=== PATIENT | male | born 1955 | race Caucasian/White ===

== ENCOUNTER 2020-07-23 04:53 | Emergency (ER) | payer MEDICARE, OTHER, SELFPAY ==
--- NOTE | ~2020-07-23 | XR_ITS ---
EXAMINATION: XR chest 2V 07/23/2020 05:52 INDICATION: Chest discomfort and shortness of breath. PROCEDURE: PA and lateral views of the chest COMPARISON: 10/29/2013 FINDINGS: The lungs are clear. The cardiomediastinal silhouette is within normal limits. There are no pleural effusions. There is no pneumothorax suspected. IMPRESSION: 1: NO ACUTE CARDIOPULMONARY DISEASE. Reviewed, dictated and finalized at location A.
[2020-07-23 04:57] VITALS: BP 148/86; PULSE 83; RESP 18; TEMP 36.3; O2SAT 99
--- NOTE | 2020-07-23 05:03 | ECG_ITS ---
Measurements Intervals [place] Rate: 71 P: 38 [place]: 159 QRS: -21 QRSD: 106 T: 23 QT: 375 QTc: 407 Interpretive Statements SINUS RHYTHM RSR' IN V1 OR V2, CONSIDER RIGHT VENTRICULAR HYPERTROPHY OR RIGHT VCD BASELINE ARTIFACT- I, III BORDERLINE ECG Electronically Signed On 07-23-2020 7:44:54 CDT by Hakan Holman D.O.
--- NOTE | 2020-07-23 05:13 | ED.CHESTPAIN ---
HPI - Chest Pain General Chief Complaint: Chest Pain <Mauricio Romero MD - Last Filed: 07/23/20 05:19> Stated Complaint: chest pressure <Mauricio Romero MD - Last Filed: 07/23/20 05:19> Time Seen by Provider: 07/23/20 05:10 <Mauricio Romero MD - Last Filed: 07/23/20 05:19> History of Present Illness HPI narrative: Awoke from sleep early this morning feeling like there was a load of bricks on his chest. He did not have any pain, but he felt like he was not able t get a full breath. This was worse when he would lay flat. He was feeling congested prior to going to sleep last night. <Mauricio Romero MD - Last Filed: 07/23/20 05:19> Related Data Home Medications: Home Medications Medication Instructions Recorded Confirmed dupilumab 300 mg/2 mL subcutaneous 300 mg SUB-Q .C6ximak ml 06/03/20 06/03/20 syringe levothyroxine 125 mcg PO DAILY 07/23/20 <Mauricio Romero MD - Last Filed: 07/23/20 05:19> Allergies/Adverse Reactions: Allergies Allergy/AdvReac Type Severity Reaction Status Date / Time bacitracin Allergy Unknown Rash Verified 07/23/20 05:12 latex Allergy Unknown Rash Verified 07/23/20 05:16 SHAMPOOS Allergy Unknown Rash Uncoded 07/23/20 05:12 SOAPS Allergy Unknown Rash Uncoded 07/23/20 05:12 <Mauricio Romero MD - Last Filed: 07/23/20 05:19> Review of Systems Review of Systems: All systems reviewed & are unremarkable except as noted in HPI and below <Mauricio Romero MD - Last Filed: 07/23/20 05:19> Constitutional: Constitutional: Denies chills and Denies fever(s) <Mauricio Romero MD - Last Filed: 07/23/20 05:19> ENT: Denies sore throat <Mauricio Romero MD - Last Filed: 07/23/20 05:19> Cardiovascular: Cardiovascular: Denies chest pain <Mauricio Romero MD - Last Filed: 07/23/20 05:19> Respiratory: Respiratory: Reports chest congestion and Reports dyspnea <Mauricio Romero MD - Last Filed: 07/23/20 05:19> Gastrointestinal: Gastrointestinal: Denies abdominal pain and Denies nausea <Mauricio Romero MD - Last Filed: 07/23/20 05:19> [facility] Past Medical History Medical History: Medical History (Updated 07/23/20 @ 10:23 by Mukund Nieto MD) Hypogonadism in male Hypothyroidism <Mauricio Romero MD - Last Filed: 07/23/20 05:19> Family History Family History: Family History (Updated 06/08/19 @ 07:36 by DOCTOR UNKNOWN) Father Diabetes mellitus Malignant neoplasm of prostate Mother Patient's mother is in good health Sibling Carcinoma of colon <Mauricio Romero MD - Last Filed: 07/23/20 05:19> Social History Social History: Social History Smoking status: Never smoker Alcohol intake: current <Mauricio Romero MD - Last Filed: 07/23/20 05:19> Course Reevaluation(s) Reevaluation #1: Currently patient feeling okay, denying any symptoms. Patient reported having slight sore throat and postnasal discharge prior to go to bed last night, he was thinking about COVID-19. Patient also had a lot of stress lately with trouble sleeping. Patient denies exposure to anybody with known COVID-19, fever, chills, headache, body aches, coughing or chest pain. Woke up this morning with trouble taking a deep breath. He feels like his breath does not go deep enough. Denying any chest pain. The symptom lasted for maximum 15 minutes and then resolved. Patient denies any history of diabetes, hypertension, family history of coronary artery disease, smoking. Patient is physically active, and not obese. Physical exam looks okay, Labs showed normal troponin level x2., EKG with LVH criteria, chest x-ray showed no acute abnormality. Patient will get discharge <Mukund Nieto MD - Last Filed: 07/23/20 10:30> Date: 07/23/20 <Mukund Nieto MD - Last Filed: 07/23/20 10:30> Time: 10:19 <Mukund Nieto MD - Last Filed: 07/23/20 10:30> Vital Signs Vital signs: Vital Signs [place]
[2020-07-23] MEDS: ASPIRIN 81 MG CHEWABLE TABLET 324 MG PO (05:18)
[2020-07-23 05:20] LABS: Basophils Absolute Auto 0.1 K/mm3 (0.0-0.1); Eosinophils Absolute Auto 0.2 K/mm3 (0-0.3); Eosinophils Percent Auto 2.7 % (0-4.4); Hematocrit 41.2 % (42.0-52.0); Hemoglobin 14.4 g/dL (14.0-18.0); Immature Granulocyte Absolute 0.04 K/mm3 (0.00-0.031); Immature Granulocyte Percent A 0.6 % (0-0.5); Lymphocytes Absolute Auto 1.65 K/mm3 (0.9-3.2); Lymphocytes Percent Auto 26.7 % (18.3-44.2); Mean Corpuscular Hemoglobin 31.6 pg (26-34); Mean Corpuscular Volume 90.4 fl (80-100); Mean Platelet Volume 9.2 fl (7.4-10.4); Monocytes Absolute Auto 0.6 K/mm3 (0.1-0.6); Neutrophils Absolute Auto 3.7 K/mm3 (1.3-6.7); Platelet Count Result 205 k/mm3 (150-375); Red Blood Count 4.56 M/mm3 (4.6-6.20); Red Cell Distribution Width 11.4 % (11.5-14.5); White Blood Count 6.2 K/mm3 (4.5-10.0)
[2020-07-23 05:29] LABS: Partial Thromboplastin Time 25.4 SECONDS (22.3-36.8); Prothrombin Time 12.5 Seconds (11.1-14.7)
[2020-07-23 05:33] LABS: Anion Gap 8 mmol/L (8-16); Blood Urea Nitrogen 20 mg/dL (9-20); Calcium 9.5 mg/dL (8.4-10.2); Carbon Dioxide 28 mmol/L (22-30); Chloride 104 mmol/L (98-107); Estimated Glomerular Filt Rate > 60; Glucose 114 mg/dL (75-110); Potassium 4.3 mmol/L (3.4-5.0); Sodium 140 mmol/L (137-145)
[2020-07-23 05:46] LABS: NT Pro B Type Natriuretic Pept 28 PG/ML (5-100); Troponin I < 0.012 ng/mL (0.000-0.034)
[2020-07-23 06:00] VITALS: BP 137/87; PULSE 70; RESP 16; O2SAT 96
[2020-07-23 07:08] VITALS: BP 135/79; PULSE 73; RESP 20; O2SAT 95
[2020-07-23 08:20] VITALS: BP 150/85; PULSE 68; RESP 21; O2SAT 96
[2020-07-23 08:29] LABS: Troponin I 0.014 ng/mL (0.000-0.034)
--- NOTE | 2020-07-23 10:10 | ECG_ITS ---
Measurements Intervals [place] Rate: 67 P: 34 [place]: 158 QRS: -21 QRSD: 101 T: 16 QT: 384 QTc: 406 Interpretive Statements SINUS RHYTHM RSR' IN V1 OR V2, CONSIDER RIGHT VENTRICULAR HYPERTROPHY OR RIGHT VCD VOLTAGE CRITERIA FOR LVH BORDERLINE ECG Electronically Signed On 07-23-2020 10:30:06 CDT by Hakan Holman D.O.
[2020-07-23 10:30] VITALS: BP 149/88; PULSE 70; RESP 21; O2SAT 96
== END 2020-07-23 10:39 | disposition home or self-care (01) ==
PROVIDERS: Emergency Medicine; Emergency Provider Emergency Medicine; PCP Internal Medicine
DX: J06.9 Acute upper respiratory infection, unspecified (principal); R06.00 Dyspnea, unspecified; E03.9 Hypothyroidism, unspecified; R94.31 Abnormal electrocardiogram [ECG] [EKG]
CPT/HCPCS: 36415; 71046; 80048; 83880; 84484; 85025; 85610; 85730; 93005; 99284; A9270

== ENCOUNTER → 2020-12-26 03:10 | Outpatient (CLI) | payer MEDICARE, OTHER, SELFPAY ==
[2020-12-28 14:14] LABS: SARS-CoV-2 RNA PCR Negative
== END ==
PROVIDERS: PCP Internal Medicine; Visit Provider Internal Medicine Critical Care Medicine
DX: Z01.812 Encounter for preprocedural laboratory examination (principal); Z20.822 Contact with and (suspected) exposure to COVID-19
CPT/HCPCS: C9803; U0003; U0005

== ENCOUNTER 2020-12-28 09:04 | Outpatient (CLI) | payer MEDICARE, OTHER, SELFPAY ==
--- NOTE | 2021-01-15 12:19 | WPDSLEEPSTUD ---
Sleep Study Ordering Provider: Alize Ramirez NP Interpreting Physician: Dominga West MD Sleep Study Type: Polysomnogram Height: 1.78 m Weight: 92.986 kg Body Mass Index: 29.4 Neck Circumference (inches): 16 Ideal: 3 Reason for Sleep Study Frequent loud snoring that disturbs others Sleep History Edward Ruiz is a 65 year old man who frequently snores loudly enough that it disturbs his . He frequently awakens at night with heartburn, belching or coughing. He rarely has trouble sleeping with a cold. He does not wake up gasping for breath at night. He frequently has breathing problems at night reported to him by others. He rarely sweats excessively at night. He does not notice his heart pounding or beating irregularly at night. He rarely falls asleep during the day. He never falls asleep involuntarily or while driving. He does not have loss of muscle tone with strong emotion. He does not have daytime difficulties due to excessive sleepiness. He does not feel paralyzed on waking or falling asleep. He rarely has vivid dreamlike scenes upon awakening or falling asleep. He does not feel afraid to go to sleep. He rarely has nightmares. He occasionally remembers his dreams. He rarely has racing thoughts. He never feels sad or depressed. Rarely he has anxiety. He rarely has muscular tension. He does not notice parts of his body jerking. He rarely kicks at night. He rarely has crawling and aching feelings in his legs and rarely has any kind of leg pain at night. He does not have morning jaw pain. He occasionally grind his teeth during sleep. He occasionally has bothered by pain during the day. He rarely is awakened by pain at night really wakes up feeling stiff in the morning with sore achy muscles and never wakes up with pain in the neck and spine. He has mild fatigue, mild memory problems and frequent heartburn at night. Normal bedtime is 10:00 p.m. falling asleep in 5 minutes waking 2-3 times at night. He does not indicate why he awakens at night. He returns to sleep within several minutes. His weekend schedule is the same. He wakes up 5:45 a.m.. He estimates getting 7-8 hours of sleep at night. He seldom takes a nap. He feels better in the morning and afternoon compared to the evening. Most of the time he feels refreshed in the morning. Habits: Caffeine: 1 mocha in the morning. Alcohol: 1 beer in the evening. [facility] Past Medical History Medical History Hyperlipidemia Hypogonadism in male Hypothyroidism Family History Family History Father Diabetes mellitus Malignant neoplasm of prostate Mother Patient's mother is in good health Sibling Carcinoma of colon Social History Social History (Updated 12/20/20 @ 15:12 by Kim Tejeda CMA) Smoking status: Never smoker Alcohol intake: current Substance use: never Medications Home Medications Medication Instructions Recorded Confirmed Type dupilumab 300 mg/2 mL subcutaneous 300 mg SUB-Q .X4kjegi ml 06/03/20 12/20/20 History syringe levothyroxine 125 mcg tablet 125 mcg PO DAILY #90 tablet 08/01/20 12/20/20 Rx Sleep Procedure This test was performed using the [employer] multiple channel system including EOG, EEG, submental EMG, EKG, nasal and oral airflow using thermistors and nasal pressure sensors, chest and abdominal belts for body position data, and pulse oximetry. Video monitoring was also performed. The study was scored using CMS guidelines. This was planned as a split night, however he did not meet criteria to start CPAP, so it was performed as a basic. The patient needed to wake up at 5:20 a.m. to go to work. Sleep Architecture The recording time is 441.3 minutes. The sleep time is 326.5 minutes. Sleep efficiency is 74%. Sleep latency is 20.8 minutes. REM latency is prolonged 142 minutes. There were 43
[2021-01-15 14:01] VITALS: BMI 29.4
== END 2020-12-28 09:05 | disposition home or self-care (01) ==
LOC: ANHCSM 09:05
PROVIDERS: PCP Internal Medicine; Visit Provider Nurse Practitioner
DX: G47.10 Hypersomnia, unspecified (principal); R06.83 Snoring; G47.39 Other sleep apnea
CPT/HCPCS: 95810

== ENCOUNTER 2020-12-30 08:14 | Outpatient (RCR) | payer MEDICARE, OTHER, SELFPAY ==
--- NOTE | 2020-12-30 08:57 | PTOPEVAL ---
PHYSICAL THERAPY EVALUATION AND PLAN OF CARE 12-30-20 Thank you for referring Edward Ruiz to [facility], for the diagnosis of BPPV/vestibular rehab.? Zeyad has improved and does not have any vestibular symptoms today. His plan of care is set for 0-2 x/week for 4 weeks. He is to call if he has any additional questions or if symptoms return and therapy treatment is needed. Please review, sign, date and return this plan of care JT. I agree with and certify that the following plan of care is medically necessary. Referring Physician Date Attending Provider: Tristen Washington MD PT Outpatient Evaluation S Document 12/30/20 08:20 CODI (Rec: 12/30/20 08:57 CODI [id number]) Outpatient Past Medical History Past Medical History Source of Past Medical History Patient Neurological History Hx Neurological Disorders No Significant History Cardiovascular History Hx Cardiac Catheterization Yes: to assess SOB- negative Hx Hypercholesterolemia Yes: meds Respiratory History Hx Respiratory Disorders No Significant History Gastrointestinal History Hx Gastroesophageal Reflux Disease Yes Musculoskeletal History Hx Musculoskeletal Disorders No Significant History Endocrine History Hx Hypothyroidism Yes: meds HEENT History Hx HEENT Disorders No Significant History Evaluation Information Problem Diagnosis dizziness/ BPPV Onset December 17, 2020 Prior Level of Function Activity Level (Last 3 Months) 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 Home Meds Must Be Re-entered With Each Visit. Comments Additional Prior Level of Function active lifestyle, doing all Comments home and work tasks, without any issues or dizziness; Pain Assessment Timing of Pain Assessment Timing of Pain Assessment Assessment Self Report Self Report Pain Level 0 Pain Score Pain Score 0: Self Report Cervical and Lumbar ROM Cervical ROM Reason Not Measured WNL/Left,WNL/Right Gait Assessment Gait Assessment Ambulation Assistive Devices None Ambulation Distance 150 Query Text:(Feet) Ambulation Ability
--- NOTE | 2021-02-06 13:54 | PCPTNOTE ---
PHYSICAL THERAPY DISCHARGE 02-06-21 Attending Provider: Tristen Washington MD Patient:Edward Ruiz Date of :1955 Zeyad has not returned for any further treatments since the evaluation on 12/30/2020, for the diagnosis of BPPV; therefore he will be discharged at this time. Thank you for referring Mr. Ruiz to [facility]. Please review, sign, date and return this discharge summary JT. I have been updated about the patient's current status and I agree with discharge from the above service at this time. Referring Physician Date
== END 2021-02-07 09:01 | disposition home or self-care (01) ==
LOC: ANHPT 08:14
PROVIDERS: PCP Internal Medicine; Visit Provider Otolaryngology
DX: H81.13 Benign paroxysmal vertigo, bilateral (principal)
CPT/HCPCS: 97161

== ENCOUNTER 2021-04-05 19:05 | Emergency (ER) | payer MEDICARE, OTHER, SELFPAY ==
--- NOTE | ~2021-04-05 | XR_ITS ---
EXAMINATION: XR chest 1V portable DATE: 04/05/2021 21:32 INDICATION: Slurred speech. TECHNIQUE: A single frontal view of the chest was obtained. COMPARISON: Chest 2 views 07/23/2020 FINDINGS: There is mild scarring at the lung apices. No pleural effusion or pneumothorax. The heart s ize is normal. IMPRESSION: 1. Stable mild scarring at the lung apices. Reviewed, dictated and finalized at location A.
--- NOTE | ~2021-04-05 | CT_ITS ---
EXAMINATION: CTA brain carotid DATE: 04/05/2021 22:29 INDICATION: Slurred speech. TECHNIQUE: Computed tomographic angiography (CTA) of the head was performed without and with 100 mL O mnipaque-350 intravenous contrast. CTA of the neck was performed with intravenous contrast. Automated exposure control and iterative reconstruction technique were employed. The dose-length product was 1 627.07 mGy-cm. Maximum intensity projection and volume rendered 3D-reconstructions were created by eleni aguayo technologist on a separate workstation. COMPARISON: None. FINDINGS: HEAD CTA: There is no intracranial hemorrhage, acute infarction, or abnormal intracranial mass lesion . The ventricles are normal in size. There is mild mucosal thickening in the ethmoid sinuses. There a re likely changes of ocular lens replacement surgeries. The mastoid air cells are normal. The vertebr al arteries are codominant. There is no significant stenosis of basilar artery or the posterior cereb ral arteries. There is no significant stenosis of the intracranial internal carotid arteries or anter ior or middle cerebral arteries. Anterior communicating artery is normal. Posterior communicating art eries are not identified. There is no aneurysm. NECK CTA: There are no pathologically enlarged lymph nodes. There is no significant stenosis of the v ertebral arteries. There is plaque in the proximal internal carotid arteries. There is 0% stenosis of the proximal right internal carotid artery relative to normal distal artery lumen diameter (NASCET c riteria). There is 0% stenosis of the proximal left internal carotid artery relative to normal distal artery lumen diameter. There is moderate cervical spondylosis. IMPRESSION: 1. Normal brain. No aneurysm or significant intracranial arterial stenosis. 2. 0% stenosis of the proximal internal carotid arteries relative to normal distal artery lumen diame ters (NASCET criteria). Reviewed, dictated and finalized at location A. IMPRESSION: 1. Normal brain. No aneurysm or significant intracranial arterial stenosis. 2. 0% stenosis of the proximal internal carotid arteries relative to normal dis radha artery lumen diameters (NASCET criteria).
[2021-04-05 19:47] VITALS: BP 156/91; PULSE 82; RESP 18; TEMP 36.7; O2SAT 98
--- NOTE | 2021-04-05 19:51 | ECG_ITS ---
Measurements Intervals [employer] Rate: 71 P: 34 [place]: 158 QRS: -19 QRSD: 96 T: 7 QT: 366 QTc: 399 Interpretive Statements SINUS RHYTHM EARLY PRECORDIAL R/S TRANSITION VOLTAGE CRITERIA FOR LVH BORDERLINE ECG Electronically Signed On 04-05-2021 21:41:25 CDT by Hakan Holman D.O.
[2021-04-05 20:11] LABS: Basophils Percent Auto 0.6 % (0.2-1.2); Eosinophils Absolute Auto 0.1 K/mm3 (0-0.3); Eosinophils Percent Auto 1.8 % (0-4.4); Hematocrit 42.9 % (42.0-52.0); Hemoglobin 14.5 g/dL (14.0-18.0); Immature Granulocyte Absolute 0.02 K/mm3 (0.00-0.031); Immature Granulocyte Percent A 0.4 % (0-0.5); Lymphocytes Absolute Auto 1.36 K/mm3 (0.9-3.2); Mean Corpuscular HGB Conc 33.8 g/dl (32-36); Mean Corpuscular Hemoglobin 30.9 pg (26-34); Mean Corpuscular Volume 91.3 fl (80-100); Mean Platelet Volume 9.2 fl (7.4-10.4); Monocytes Absolute Auto 0.6 K/mm3 (0.1-0.6); Monocytes Percent Auto 10.3 % (2.6-8.5); Neutrophils Absolute Auto 3.4 K/mm3 (1.3-6.7); Neutrophils Percent Auto 61.9 % (45.5-73.1); Platelet Count Result 208 k/mm3 (150-375); Red Cell Distribution Width 11.7 % (11.5-14.5); White Blood Count 5.4 K/mm3 (4.5-10.0)
[2021-04-05 20:20] LABS: Anion Gap 9 mmol/L (8-16); Blood Urea Nitrogen 21 mg/dL (9-20); Calcium 9.6 mg/dL (8.4-10.2); Carbon Dioxide 23 mmol/L (22-30); Chloride 112 mmol/L (98-107); Estimated CRCL calculation 67 ml/min; Estimated Glomerular Filt Rate > 60; Glucose 99 mg/dL (75-110); INR 0.9; Prothrombin Time 12.6 Seconds (11.1-14.7); Sodium 144 mmol/L (137-145)
[2021-04-05 20:21] LABS: Partial Thromboplastin Time 24.9 SECONDS (22.3-36.8)
[2021-04-05 20:32] LABS: Troponin I < 0.012 ng/mL (0.000-0.034)
[2021-04-05 21:17] VITALS: BP 155/85; PULSE 68; RESP 18; O2SAT 95
[2021-04-05 21:33] VITALS: BP 155/85; PULSE 66; RESP 17; O2SAT 97
[2021-04-05 21:46] VITALS: BP 156/97; PULSE 70; RESP 21; O2SAT 95
--- NOTE | 2021-04-05 21:48 | ED.NEUROSD ---
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 Patient states that late on the afternoon around 6 PM slurred speech, single episode and also only lasted for a few seconds . Patient denies any visual disturbance, focal weakness or numbness, unsteady gait, headache or dizziness. Patient denies any chest pain, shortness of breath, abdominal pain, nausea, vomiting, fever or chills. Patient currently has no complaints. Related Data Home Medications Medication Instructions Recorded Confirmed dupilumab 300 mg/2 mL subcutaneous 300 mg SUB-Q .E9flvga ml 06/03/20 12/20/20 syringe Allergies Allergy/AdvReac Type Severity Reaction Status Date / Time bacitracin Allergy Unknown Rash Verified 07/23/20 05:12 latex Allergy Unknown Rash Verified 07/23/20 05:16 mercaptobenzothiazole Allergy Unknown contact Verified 12/20/20 15:09 dermititis gold Au 198 AdvReac Rash Verified 04/05/21 21:21 SHAMPOOS Allergy Unknown Rash Uncoded 07/23/20 05:12 SOAPS Allergy Unknown Rash Uncoded 07/23/20 05:12 Review of Systems Review of Systems: All systems reviewed & are unremarkable except as noted in HPI and below Constitutional: Constitutional: Denies body ache(s), Denies chills, Denies excessive sweating, Denies fatigue, Denies fever(s), Denies headache(s), Denies lethargy, Denies malaise, Denies weakness and Denies weight loss Eyes: Eyes: Denies blurry vision, Denies change in vision and Denies loss of vision ENT: Denies dizziness, Denies ear discharge, Denies headache(s), Denies lip swelling, Denies epistaxis, Denies nasal congestion, Denies neck pain, Denies throat swelling and Denies tongue swelling Cardiovascular: Cardiovascular: Denies chest pain, Denies chest pain at rest, Denies chest pain with activity, Denies diaphoresis, Denies rapid heart rate, Denies edema, Denies irregular heart rhythm, Denies lightheadedness, Denies palpitations, Denies dyspnea and Denies dyspnea on exertion Respiratory: Respiratory: Denies chest congestion, Denies cough, Denies hemoptysis, Denies dyspnea and Denies dyspnea on exertion Gastrointestinal: Gastrointestinal: Denies abdominal pain, Denies melena, Denies hematochezia, Denies diarrhea, Denies nausea, Denies vomiting and Denies hematemesis Musculoskeletal: Musculoskeletal: Denies abnormal gait, Denies deformity, Denies joint swelling, Denies limited range of motion, Denies neck pain and Denies numbness Neurologic: Denies abnormal gait, Denies confusion, Denies dizziness, Denies headache(s), Denies focal weakness, Denies loss of vision, Denies numbness, Denies Other visual disturbances, Denies Sensory deficit (Neuro) and Denies weakness Psychiatric: Psychiatric: Denies confusion, Denies depression, Denies auditory hallucinations, Denies homicidal ideation and Denies suicidal ideation Endocrine: Endocrine: Denies cold intolerance, Denies excessive sweating, Denies fatigue, Denies heat intolerance and Denies palpitations Hematologic/Lymphatic: Hematologic/Lymphatic: Denies easy bleeding and Denies easy bruising Allergic/Immunologic: Allergic/Immunologic: Denies lip swelling, Denies throat swelling and Denies tongue swelling PMFSH Past Medical History Medical History Hyperlipidemia Hypogonadism in male Hypothyroidism Family History Family History Father Diabetes mellitus Malignant neoplasm of prostate Mother Patient's mother is in good health Sibling Carcinoma of colon
[2021-04-05 22:01] VITALS: BP 151/89; PULSE 68; RESP 15; O2SAT 96
[2021-04-05 23:00] VITALS: BP 132/81; PULSE 64; RESP 16; O2SAT 95
--- NOTE | 2021-04-05 23:32 | PC.NURSE ---
Assumed care of pt. at this time. Report from BAMBI Mckeon
[2021-04-06] VITALS: BP 123/97; PULSE 62; RESP 19; O2SAT 95
[2021-04-06] MEDS: ASPIRIN 325 MG ENTERIC TABLET PO (00:39)
[2021-04-06 00:40] VITALS: BP 130/80; PULSE 69; RESP 17; O2SAT 97
== END 2021-04-06 00:40 | disposition home or self-care (01) ==
PROVIDERS: Emergency Medicine; Emergency Provider Emergency Medicine; PCP Internal Medicine
DX: G45.9 Transient cerebral ischemic attack, unspecified (principal); E03.9 Hypothyroidism, unspecified; E78.5 Hyperlipidemia, unspecified
CPT/HCPCS: 36415; 70496; 70498; 71045; 80048; 84484; 85025; 85610; 85730; 93005; 99284; A9270; Q9967

== ENCOUNTER 2021-09-27 02:00 | Day surgery (SDC) | payer MEDICARE, OTHER, SELFPAY ==
[2021-09-15 13:58] VITALS: BMI 34.8
--- NOTE | 2021-09-26 13:05 | PM.HPGS ---
History of Present Illness History of Present Illness Consent: Risks, benefits, and alternatives have been discussed and questions answered. Patient agrees to proceed with procedure. Chief complaint: family hx of colon ca Narrative: Edward Ruiz is a 66 year old male referred for colon cancer screening. He has family history of polyps in his mother and father. Also his brother had colon cancer. His last colonoscopy was 6 years ago Review of Systems Review of Systems: All systems reviewed & are unremarkable except as noted in HPI and below PMFSH Past Medical History Medical History Elevated PSA Hyperlipidemia Hypogonadism in male Hypothyroidism TIA (transient ischemic attack) Family History Family History Father Diabetes mellitus Malignant neoplasm of prostate Mother Patient's mother is in good health Sibling Carcinoma of colon Social History Social History Smoking status: Never smoker Alcohol intake: current Drinks per week: 7 Substance use: never Substance use type: does not use Living arrangements: with family Spiritual care concerns: No Meds Home Medications and Allergies Home Medications Medication Instructions Recorded Confirmed Type dupilumab 300 mg/2 mL subcutaneous 300 mg SUB-Q .G1yjgmq ml 06/03/20 09/27/21 History syringe levothyroxine 125 mcg tablet 125 mcg PO DAILY #90 tablet 07/17/21 09/27/21 Rx atorvastatin 20 mg tablet 20 mg PO DAILY #90 tablet 08/09/21 09/27/21 Rx aspirin 81 mg tablet,delayed 81 mg PO DAILY 08/16/21 09/27/21 History release Allergies Allergy/AdvReac Type Severity Reaction Status Date / Time bacitracin Allergy Unknown Rash Verified 09/27/21 11:41 latex Allergy Unknown Rash Verified 09/27/21 11:41 mercaptobenzothiazole Allergy Unknown contact Verified 09/27/21 11:41 dermititis amiodarone Allergy Unknown Verified 09/27/21 11:41 butylscopolamine bromide Allergy unknown Verified 09/27/21 11:41 carbamazepine Allergy unknown Verified 09/27/21 11:41 cocamidopropyl betaine Allergy Unknown Verified 09/27/21 11:41 gold Au 198 AdvReac Rash Verified 09/27/21 11:41 iron AdvReac unknown Verified 09/27/21 11:41 potassium AdvReac unknown Verified 09/27/21 11:41 zinc AdvReac unknown Verified 09/27/21 11:41 SHAMPOOS Allergy Unknown Rash Uncoded 09/27/21 11:41 SOAPS Allergy Unknown Rash Uncoded 09/27/21 11:41 shameka Allergy Rash Uncoded 09/27/21 11:41 Exam Const: General: alert Orientation/consciousness: patient oriented x3 Resp: Auscultation: clear to auscultation bilaterally Cardio: Rhythm: regular rhythm GI: GI Palp: Yes Soft to palpation and No Tenderness to palpation present (GI) Neuro: General: patient oriented x3 Assessment and Plan Assessment and plan (1) Screening for colon cancer: Code(s): Z12.11 - Encounter for screening for malignant neoplasm of colon Status: Acute Assessment and Plan: Colonoscopy with possible biopsy or polypectomy or cautery or injection of substances.
[2021-09-27 11:42] VITALS: BP 145/77; PULSE 89; RESP 20; TEMP 36.1; O2SAT 98
[2021-09-27] MEDS: LACTATED RINGERS 1,000 ML 150 ML IV CONT (11:44)
--- NOTE | 2021-09-27 12:06 | WPDANESEPPF ---
Anes - Initial Pre Proc Eval Procedure: Operation Date: 09/27/21 13:00 Proposed Procedures p Screening Colonoscopy - Thomas Batista MD Date/Time: 09/27/21 12:06 Surgeon: Thomas Batista MD Pre Op Diagnosis: family hx of colon ca Patient Data Age: 66 Gender: M Height: 1.65 m Weight: 90.8 kg Last Vital Signs Temp 36.1 C L 09/27/21 11:42 Pulse 89 09/27/21 11:42 Resp 20 09/27/21 11:42 BP 145/77 H 09/27/21 11:42 Pulse Ox 98 09/27/21 11:42 Allergies Allergy/AdvReac Type Severity Reaction Status Date / Time bacitracin Allergy Unknown Rash Verified 09/27/21 11:41 latex Allergy Unknown Rash Verified 09/27/21 11:41 mercaptobenzothiazole Allergy Unknown contact Verified 09/27/21 11:41 dermititis amiodarone Allergy Unknown Verified 09/27/21 11:41 butylscopolamine bromide Allergy unknown Verified 09/27/21 11:41 carbamazepine Allergy unknown Verified 09/27/21 11:41 cocamidopropyl betaine Allergy Unknown Verified 09/27/21 11:41 gold Au 198 AdvReac Rash Verified 09/27/21 11:41 iron AdvReac unknown Verified 09/27/21 11:41 potassium AdvReac unknown Verified 09/27/21 11:41 zinc AdvReac unknown Verified 09/27/21 11:41 SHAMPOOS Allergy Unknown Rash Uncoded 09/27/21 11:41 SOAPS Allergy Unknown Rash Uncoded 09/27/21 11:41 shameka Allergy Rash Uncoded 09/27/21 11:41 Home Medications Medication Instructions Recorded Confirmed Type dupilumab 300 mg/2 mL subcutaneous 300 mg SUB-Q .U3ndrnr ml 06/03/20 09/27/21 History syringe levothyroxine 125 mcg tablet 125 mcg PO DAILY #90 tablet 07/17/21 09/27/21 Rx atorvastatin 20 mg tablet 20 mg PO DAILY #90 tablet 08/09/21 09/27/21 Rx aspirin 81 mg tablet,delayed 81 mg PO DAILY 08/16/21 09/27/21 History release Patient hx anesthesia problems: none Family hx anesthesia problems: none Results Review: All pre-operative results and documents have been reviewed as part of the pre-operative evaluation. [facility] Past Medical History Medical History Elevated PSA Hyperlipidemia Hypogonadism in male Hypothyroidism TIA (transient ischemic attack) Surgical History Surgical History (Updated 09/27/21 @ 12:09 by Ferdinand Hyman MD) H/O arthroscopic knee surgery H/O colonoscopy Family History Family History Father Diabetes mellitus Malignant neoplasm of prostate Mother Patient's mother is in good health Sibling Carcinoma of colon Social History Social History Smoking status: Never smoker Alcohol intake: current Drinks per week: 7 Substance use: never Substance use type: does not use Living arrangements: with family Spiritual care concerns: No Anes - Eval Final PreProcedure Day of Procedure 09/27/21 12:06 Patient weight: obese Heart: regular rate and rhythm Lungs: clear to auscultation Airway: Mallampati scale class II Neurological: alert and oriented Last oral intake: >/= 8 hours ASA classification: III Emergent: no Anesthetic plan: proceed Anesthesia type and monitoring: general GIVS and standard monitoring Results Review: All pre-operative results and documents have been reviewed as part of the pre-operative evaluation. Informed Consent: The patient's anesthetic plan and its attendant risks and benefits were discussed with the patient/family/POA. Questions were solicited and answers provided to the satisfaction of the patient/family/POA.
[2021-09-27 12:46] VITALS: BP 90/60; PULSE 74; RESP 22; O2SAT 97
[2021-09-27 12:56] VITALS: BP 114/73; PULSE 82; RESP 20; O2SAT 100
[2021-09-27 13:06] VITALS: BP 118/81; PULSE 72; RESP 18; O2SAT 100
== END 2021-09-27 13:13 | disposition home or self-care (01) ==
PROVIDERS: PCP Internal Medicine; Visit Provider Internal Medicine Gastroenterology
PROC: 0DJD8ZZ Inspection of Lower Intestinal Tract, Via Natural or Artificial Opening Endoscopic (ICD-10-PCS; CPT 45378; principal; 2021-09-27 13:00)
DX: Z12.11 Encounter for screening for malignant neoplasm of colon (principal); K63.5 Polyp of colon; Z80.0 Family history of malignant neoplasm of digestive organs; E78.5 Hyperlipidemia, unspecified; E03.9 Hypothyroidism, unspecified; Z86.73 Personal history of transient ischemic attack (TIA), and cerebral infarction without residual deficits; R97.20 Elevated prostate specific antigen [PSA]; E66.9 Obesity, unspecified; Z68.33 Body mass index [BMI] 33.0-33.9, adult
CPT/HCPCS: 45385; J2704; J7120

== ENCOUNTER 2022-03-29 13:30 | Outpatient (RCR) | payer MEDICARE, OTHER, SELFPAY ==
[2022-03-29 13:33] VITALS: BP 112/70; PULSE 80; RESP 20; TEMP 36.9; O2SAT 98
[2022-03-29] MEDS: diphenhydrAMINE HCl CAP 25 MG CAPSULE PO (13:46)
[2022-03-29] MEDS: FAMOTIDINE 20 MG TABLET PO (13:46)
[2022-03-29] MEDS: BEBTELOVIMAB 175 MG/2 ML VIAL IV PUSH (14:05)
[2022-03-29 14:47] VITALS: BP 114/66; PULSE 70; O2SAT 98
== END 2022-03-29 16:00 ==
LOC: AMCINF 13:30
PROVIDERS: Visit Provider Internal Medicine Hematology & Oncology
DX: U07.1 COVID-19 (principal)
CPT/HCPCS: A9270; M0222; Q0222

== ENCOUNTER 2022-05-31 09:38 | Outpatient (CLI) | payer MEDICARE, OTHER, SELFPAY ==
[2022-05-31 20:34] LABS: Vitamin D 25 Hydroxy 57.9 ng/mL
[2022-05-31 21:04] LABS: Hemoglobin A1C 5.7 % (<5.7)
== END 2022-05-31 09:39 | disposition home or self-care (01) ==
LOC: ANHGOSHLAB 09:42
PROVIDERS: PCP Family Medicine; Visit Provider Family Medicine
DX: R73.03 Prediabetes (principal); E55.9 Vitamin D deficiency, unspecified
CPT/HCPCS: 36415; 82306; 83036

== ENCOUNTER 2022-09-14 06:59 | Outpatient (CLI) | payer MEDICARE, OTHER, SELFPAY ==
[2022-09-14 07:41] LABS: Basophils Percent Auto 0.4 % (0.2-1.2); Eosinophils Absolute Auto 0.2 K/mm3 (0-0.3); Eosinophils Percent Auto 2.4 % (0-4.4); Hemoglobin 14.3 g/dL (14.0-18.0); Immature Granulocyte Absolute 0.02 K/mm3 (0.00-0.031); Immature Granulocyte Percent A 0.2 % (0-0.5); Lymphocytes Percent Auto 12.5 % (18.3-44.2); Mean Corpuscular Hemoglobin 31.6 pg (26-34); Mean Corpuscular Volume 92.7 fl (80-100); Mean Platelet Volume 9.2 fl (7.4-10.4); Monocytes Absolute Auto 0.8 K/mm3 (0.1-0.6); Monocytes Percent Auto 9.7 % (2.6-8.5); Neutrophils Percent Auto 74.8 % (45.5-73.1); Platelet Count Result 195 k/mm3 (150-375); Red Blood Count 4.53 M/mm3 (4.6-6.20); Red Cell Distribution Width 11.9 % (11.5-14.5)
[2022-09-14 08:41] LABS: Free T4 Free Thyroxine 1.04 ng/mL (0.78-2.19)
[2022-09-14 09:59] LABS: Alanine Aminotransferase 27 U/L (6-50); Albumin Level 4.2 g/dL (3.5-5.1); Alkaline Phosphatase 84 U/L (38-126); Anion Gap 7 mmol/L (8-16); Aspartate Amino Transferase 26 U/L (17-59); Bilirubin,Total 0.8 mg/dL (0.2-1.3); Blood Urea Nitrogen 23 mg/dL (9-20); Calcium 8.9 mg/dL (8.4-10.2); Carbon Dioxide 26 mmol/L (22-30); Chloride 102 mmol/L (98-107); Cholesterol 185 mg/dL (0-200); Estimated Glomerular Filt Rate > 60; Glucose 113 mg/dL (65-110); HDL Direct 55 mg/dL; Potassium 4.4 mmol/L (3.4-5.0); Sodium 135 mmol/L (137-145); Triglycerides 58 mg/dL (<150)
[2022-09-14 10:10] LABS: LDL Cholesterol Direct 86 mg/dL
== END 2022-09-14 07:00 | disposition home or self-care (01) ==
LOC: ANHLAB 07:03
PROVIDERS: PCP Family Medicine; Visit Provider Family Medicine
DX: R53.83 Other fatigue (principal); E03.9 Hypothyroidism, unspecified; E78.5 Hyperlipidemia, unspecified
CPT/HCPCS: 36415; 80053; 80061; 84439; 84443; 85025

== ENCOUNTER → 2023-06-28 08:03 | Outpatient (CLI) | payer MEDICARE, OTHER, SELFPAY ==
--- NOTE | ~2023-06-28 | XR_ITS ---
EXAMINATION: XR chest 2V DATE: 06/28/2023 08:14 INDICATION: Cough. TECHNIQUE: Frontal and lateral views of the chest were obtained. COMPARISON: Chest view 04/05/2021 FINDINGS: There is mild scarring at the lung apices. No pleural effusion or pneumothorax. The heart s ize is normal. IMPRESSION: 1. Stable mild scarring at the lung apices. Reviewed, dictated and finalized at location A.
== END ==
PROVIDERS: PCP Family Medicine; Visit Provider Nurse Practitioner Family
DX: R05.9 Cough, unspecified (principal)
CPT/HCPCS: 71046

== ENCOUNTER 2023-09-09 07:54 | Outpatient (CLI) | payer MEDICARE, OTHER, SELFPAY ==
[2023-09-09 12:22] LABS: Basophils Absolute Auto 0.1 K/mm3 (0.0-0.1); Basophils Percent Auto 0.9 % (0.2-1.2); Eosinophils Absolute Auto 0.2 K/mm3 (0-0.3); Eosinophils Percent Auto 4.1 % (0-4.4); Hematocrit 43.4 % (42.0-52.0); Hemoglobin 13.9 g/dL (14.0-18.0); Immature Granulocyte Absolute 0.05 K/mm3 (0.00-0.031); Immature Granulocyte Percent A 0.9 % (0-0.5); Lymphocytes Absolute Auto 1.36 K/mm3 (0.9-3.2); Lymphocytes Percent Auto 23.2 % (18.3-44.2); Mean Corpuscular Hemoglobin 30.1 pg (26-34); Mean Corpuscular Volume 93.9 fl (80-100); Mean Platelet Volume 9.6 fl (7.4-10.4); Monocytes Absolute Auto 0.5 K/mm3 (0.1-0.6); Monocytes Percent Auto 7.9 % (2.6-8.5); Neutrophils Absolute Auto 3.7 K/mm3 (1.3-6.7); Platelet Count Result 215 k/mm3 (150-375); Red Blood Count 4.62 M/mm3 (4.6-6.20); Red Cell Distribution Width 11.8 % (11.5-14.5); White Blood Count 5.9 K/mm3 (4.5-10.0)
[2023-09-09 12:33] LABS: Alanine Aminotransferase 22 U/L (6-50); Alkaline Phosphatase 100 U/L (38-126); Anion Gap 7 mmol/L (8-16); Aspartate Amino Transferase 40 U/L (17-59); Bilirubin,Total 0.5 mg/dL (0.2-1.3); Blood Urea Nitrogen 21 mg/dL (9-20); Calcium 9.2 mg/dL (8.4-10.2); Carbon Dioxide 29 mmol/L (22-30); Chloride 101 mmol/L (98-107); Cholesterol 172 mg/dL (0-200); Estimated Glomerular Filt Rate > 60; Glucose 102 mg/dL (65-110); HDL Direct 54 mg/dL; Potassium 4.4 mmol/L (3.4-5.0); Sodium 137 mmol/L (137-145); Triglycerides 84 mg/dL (<150)
[2023-09-09 12:44] LABS: LDL Cholesterol Direct 85 mg/dL
[2023-09-09 13:01] LABS: Prostate Specific Antigen 4.4 ng/mL (< OR = 4.0)
[2023-09-09 13:04] LABS: Hemoglobin A1C 5.6 % (<5.7)
[2023-09-09 13:04] LABS: Free T4 Free Thyroxine 1.24 ng/mL (0.78-2.19); Vitamin D 25 Hydroxy 31.4 ng/mL
== END 2023-09-09 07:55 | disposition home or self-care (01) ==
PROVIDERS: PCP Family Medicine; Visit Provider Family Medicine
DX: E03.9 Hypothyroidism, unspecified (principal); E55.9 Vitamin D deficiency, unspecified; E78.5 Hyperlipidemia, unspecified; R73.03 Prediabetes; R53.83 Other fatigue; R97.20 Elevated prostate specific antigen [PSA]; Z12.5 Encounter for screening for malignant neoplasm of prostate
CPT/HCPCS: 36415; 80053; 80061; 82306; 83036; 84153; 84439; 84443; 85025; G0103

== ENCOUNTER → 2023-09-26 10:04 | Outpatient (CLI) | payer MEDICARE, OTHER, SELFPAY ==
--- NOTE | ~2023-09-26 | XR_ITS ---
Right Shoulder Technique: AP and axillary views were obtained. Clinical History: Pain Findings: No fracture or dislocation is seen. Osseous alignment is anatomic. The glenohumeral and acr omioclavicular joint spaces are preserved. Soft tissues are unremarkable. Impression: Unremarkable right shoulder radiographs. Reviewed, dictated and finalized at [facility]. PURSER Impression: Unremarkable right shoulder radiographs.
== END ==
PROVIDERS: PCP Family Medicine; Visit Provider Family Medicine
DX: M25.511 Pain in right shoulder (principal)
CPT/HCPCS: 73030

== ENCOUNTER 2023-10-11 10:00 | Outpatient (RCR) | payer MEDICARE, OTHER, SELFPAY ==
--- NOTE | 2023-09-10 11:22 | PTOPEVAL1 ---
Assessment and note entered by Lester Eaton, PT Evaluation Information Assessment Status Evaluation Diagnosis Right shoulder pain Onset 08/20/23 Subjective Information Reports that he had a fall a few weeks ago onto shoulder. Took steroids and it helped. No pain past elbow and nothing in the neck. Patient is R handed. He is having trouble sleeping on his right side. Reported Pain Level Pain Score 0: Self Report Assessment PT Clinical Summary Patient presents [facility] signs and symptoms consistent with rotator cuff trauma. Shoulder ROM is good, but lacking significant muscle strength and limited by pain with contraction. Patient will benefit from skilled therapy to address deficits and improve functional strength for ADL and quality of life improvement. Plan of Care Interventions Electrical Stimulation,Hot Pack/Cold Pack,Manual Therapy,Neuro Re-education,Therapeutic Activities, Therapeutic Exercise PT Services Indicated Yes Treatment Frequency and 2x/week for 4 weeks Duration These treatments will address the objective and functional deficits as defined above. The patient will be advanced safely and appropriately in order for the patient to progress towards his/her prior level of function. Additional exercises will be introduced and as well as a comprehensive home exercise program upon discharge, if needed, ?to ensure carryover of functional gains achieved in the clinic. This treatment plan has been reviewed and agreement upon by the patient.
--- NOTE | 2023-09-10 11:23 | OPREHPOC ---
Outpatient Therapy Plan of Care This is a Multidisciplinary Plan of Care that may contain components documented by all disciplines (PT, OT, and ST.) PT Problem 1 PT Problem #1 Knowledge Deficit PT Goal 1 Goal Independent with postural HEP Target Visit 4 PT Problem 2 PT Problem #2 Pain PT Goal 1 Goal Reports no pain with sleeping and no positional change due to pain at night Target Visit 4 PT Problem 3 PT Problem #3 Impaired Strength PT Goal 1 Goal Improve R shoulder External Rotation strength to 4 +/5 with no pain to improve shoulder stability. Target Visit 8 PT Goal 2 Goal Patient will improve R shoulder flexion strength to 4+/5 to improve lifting ability and functional reach. Target Visit 8
--- NOTE | 2023-10-11 10:58 | OPREHPOC ---
Outpatient Therapy Plan of Care This is a Multidisciplinary Plan of Care that may contain components documented by all disciplines (PT, OT, and ST.) PT Problem 1 PT Problem #1 Knowledge Deficit PT Goal 1 Goal Independent with postural HEP Target Visit 4 Progress Met PT Problem 2 PT Problem #2 Pain PT Goal 1 Goal Reports no pain with sleeping and no positional change due to pain at night Target Visit 4 Progress Partially Met Comment Still having some bad days but overall improved PT Problem 3 PT Problem #3 Impaired Strength PT Goal 1 Goal Improve R shoulder External Rotation strength to 4 +/5 with no pain to improve shoulder stability. Target Visit 8 Progress Not Met PT Goal 2 Goal Patient will improve R shoulder flexion strength to 4+/5 to improve lifting ability and functional reach. Target Visit 8 Progress Not Met
--- NOTE | 2023-10-11 10:59 | PTOPDC ---
Assessment and note entered by Lester Eaton, PT Evaluation Information Assessment Status Discharge Diagnosis Right shoulder pain Onset 08/20/23 Subjective Information Reports that he had a fall a few weeks ago onto shoulder. Took steroids and it helped. No pain past elbow and nothing in the neck. Patient is R handed. He is having trouble sleeping on his right side. Reported Pain Level Pain Score 1: Self Report Assessment PT Clinical Summary Patient has seen significant improvement in shoulder ROM and comfort with ADLs and self care. He continues to show significant weakness of the rotator cuff group and overhead activity. 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 At this point given his lack of ROM deficits and continued weakness I am highly suspicious of rotator cuff compromise and believe an MRI would be warranted for further evaluation. Plan of Care PT Services Indicated Yes
== END 2023-10-11 13:22 | disposition home or self-care (01) ==
LOC: ANHGOSHPT 10:00
PROVIDERS: PCP Family Medicine; Visit Provider Nurse Practitioner
DX: M25.511 Pain in right shoulder (principal)
CPT/HCPCS: 97110; 97140; 97161; 97530

== ENCOUNTER 2025-02-21 10:56 | Emergency (ER) | payer MEDICARE, SELFPAY ==
--- NOTE | 2025-02-21 10:58 | ED.SKABFB ---
HPI - Skin/Abscess/Foreign Bdy General Chief complaint: Skin/Abscess/Foreign Body Stated complaint: Skin Irritation on R and L Hands Time Seen by Provider: 02/21/25 10:57 Source: patient Mode of arrival: ambulatory Limitations: no limitations History of Present Illness HPI narrative: Edward is a 69-year-old male patient presenting to the clinic today with complaints of a rash to bilateral hands. He reports his missile facilities repairer stated he had staph on his hands and he has finished Keflex and went away however now it has come back-Keflex on the of this month. He is requesting a refill as he has to get on a plane and travel this afternoon. He denies any fevers, chills, body aches. States the rash barkley/stings. Does not itch. Related Data Home Medications ?Medication ?Instructions ?Recorded ?Confirmed ?Last Taken ?Type dupilumab 300 mg/2 mL subcutaneous 300 mg subcut .[id number] 06/03/20 11/26/24 07/14/20 12:00 History syringe (Dupixent) aspirin 81 mg tablet,delayed 81 mg PO DAILY 08/16/21 11/26/24 Unknown History release (Adult Aspirin Regimen) Allergies Allergy/AdvReac Type Severity Reaction Status Date / Time bacitracin Allergy Unknown Rash Verified 02/21/25 10:59 latex Allergy Unknown Rash Verified 02/21/25 10:59 mercaptobenzothiazole Allergy Unknown contact Verified 02/21/25 10:59 dermititis amiodarone Allergy Unknown Verified 02/21/25 10:59 butylscopolamine bromide Allergy unknown Verified 02/21/25 10:59 carbamazepine Allergy unknown Verified 02/21/25 10:59 cocamidopropyl betaine Allergy Unknown Verified 02/21/25 10:59 gold Au 198 AdvReac Rash Verified 02/21/25 10:59 iron AdvReac unknown Verified 02/21/25 10:59 potassium AdvReac unknown Verified 02/21/25 10:59 zinc AdvReac unknown Verified 02/21/25 10:59 SHAMPOOS Allergy Unknown Rash Uncoded 02/21/25 10:59 SOAPS Allergy Unknown Rash Uncoded 02/21/25 10:59 shameka Allergy Rash Uncoded 02/21/25 10:59 Review of Systems Review of Systems: Pertinent positives per HPI. Patient denies any fever, chills, headache, visual changes, dizziness, cough, shortness of breath, chest pain, palpitations, nausea, vomiting, diarrhea, constipation, abdominal pain, or any urinary issues. [facility] Past Medical History Medical History Persistent cough Bronchitis Infected finger COVID-19 Elevated PSA TIA (transient ischemic attack) Hyperlipidemia Hypogonadism in male Hypothyroidism Surgical History Surgical History H/O colonoscopy H/O arthroscopic knee surgery Family History Family History Father Diabetes mellitus Malignant neoplasm of prostate Mother Patient's mother is in good health Sibling Carcinoma of colon Social History Social History Social History: Caffeine-coffee Smoking status: Never smoker Alcohol intake: current Drinks per week: 7 Alcohol use details: beer/wine Substance use: never Substance use type: does not use Do You Feel Safe in your Home?: Yes Lack of Transportation: No Lack of Food: Never True Current Housing: I Have Housing Concerned About Future Housing: No Difficulty Paying Gas/Electric Bills: No Difficulty Paying for Meds: No Currently Unemployed: No Education: Bachelor's Degree Difficulty w/ Childcare or Family Care: No Living arrangements: with family Spiritual care concerns: No Comments At the time of my signature, I reviewed and agree with the nursing past medical, surgical, social, and family history. There is no relevant family history pertinent to the patient complaint. Exam Narrative: General: Well-developed, well nourished, in no apparent distress Head: Normocephalic, atraumatic. Cardio: Regular rate and rhythm, s1 and s2 normal, no murmur appreciated. Resp: Clear to auscultation bilaterally, no rhonchi, rales, wheezing or rubs. Integumentary: [place], warm, and dry, red burning rash to the bilateral hands in between the fingers. Course Course Emergency Course: Portions of this record may have been created with voice recognition software. Level of Care: Express Care Visit Vital Signs Vital signs: Vital signs reviewed MDM - Skin/Abscess/Foreign Bdy MDM Narrative Medical decision making narrative: At the time of visit patient is resting comfortably on the exam table. Patient appears to be nontoxic. Plan: I suspect patient has a staph skin infection to bilateral hands. Prescription for cephalexin was sent to the pharmacy. Supportive measures were discussed with the patient and they voiced understanding discharge instructions and agrees to treatment plan. Return precautions reviewed Differential Diagnosis Differential diagnosis: Likely abscess of skin or subcutaneous tissue, viral exanthem, dermatophytosis, urticaria, herpes zoster, allergic reaction to drug, cellulitis, eczema, insect bites, impetigo and contact dermatitis Discharge Plan Discharge Clinical Impression: Staph skin infection Patient Disposition: Home Condition: Stable Instructions: Antibiotic Form Additional Instructions: Take cephalexin as prescribed May take Tylenol/Motrin as needed for pain Follow-up with your missile facilities repairer as discussed Patient Language: Luxembourgish Prescriptions: New cephalexin 500 mg capsule 500 mg PO Q8H 7 Days Qty: 21 0RF No Action Dupixent Syringe 300 mg/2 mL syringe 300 mg SUB-Q .I7qtceo aspirin [Adult Aspirin Regimen] 81 mg tablet,delayed release (DR/EC) 81 mg PO DAILY atorvastatin 20 mg tablet See Rx Instructions .ROUTE .COMPLEX Qty: 90 3RF Dose Instruction: TAKE 1 TABLET DAILY Rx Instructions: TAKE 1 TABLET DAILY AT BEDTIME levothyroxine 125 mcg tablet See Rx Instructions .ROUTE .COMPLEX Qty: 90 3RF Dose Instruction: TAKE 1 TABLET DAILY Rx Instructions: TAKE 1 TABLET DAILY. omeprazole 20 mg capsule,delayed release(DR/EC) 20 mg PO DAILY Qty: 90 1RF Follow-up/Referrals: Anjelica Hughes DO [Primary Care Provider] - Time of Disposition: 11:13 Quality NIHSS Nursing Documentation ED NIHSS nursing documentation: reviewed/agree
[2025-02-21 11:12] VITALS: BP 134/82; PULSE 77; RESP 20; TEMP 36.6; O2SAT 97
== END 2025-02-21 11:16 | disposition home or self-care (01) ==
PROVIDERS: Emergency Provider Nurse Practitioner Family; PCP Family Medicine
DX: L08.9 Local infection of the skin and subcutaneous tissue, unspecified (principal); B95.8 Unspecified staphylococcus as the cause of diseases classified elsewhere; E03.9 Hypothyroidism, unspecified; E78.5 Hyperlipidemia, unspecified; Z86.73 Personal history of transient ischemic attack (TIA), and cerebral infarction without residual deficits; Z86.16 Personal history of COVID-19; Z79.82 Long term (current) use of aspirin
CPT/HCPCS: 99213; G0463

== ENCOUNTER 2025-05-06 10:11 | Outpatient (CLI) | payer MEDICARE, OTHER, SELFPAY ==
--- OUTSIDE RECORDS SUMMARY | 2025-05-06 10:18 | XMS_ITS | Encounter Summary ---
Author Organization [facility] Health Address [address] [facility] [facility] [place] [address] Care Team Providers Care Architectural Wood Model Maker Name Role Phone Mike Norwood DO Primary Care Provider [phone] Anjelica Hughes DO Primary Care Provider [phone] Reason for Visit * Reason Onset Date Comments Refill Request 09/26/2023 Encounter Details Date Type Department Care Team (Late st Contact Info) Description 09/26/2023 Telephone [facility] - ENT [address] [place] [phone] Rusyt Savage MD [address] [place] [address] [address] [place] [address] Refill Request Social History Tobacco Use Types Packs/Day Years Used Date Smoking Tobacco: Former Cigarettes Q uit: 10/14/1972 Smokeless Tobacco: Never Alcohol Use Standard Drinks/Week Comments Yes 5.8 (1 standard drink = 0.6 oz p ure alcohol) Sex and Gender Information Value Date Recorded Sex Assigned at Not on file Legal Sex Male 5:19 PM APPEALS ANALYST Gender Identity Not on file Sexual Orientation Not on file documented as of this encounter Miscellaneous Notes * Telephone Encounter - Rusty Savage MD - 01/07/2024 1:41 PM CDT Done. Paper signed yesterday. * Telephone Encounter - Therese Green - 01/03/2024 1:44 PM CDT [facility] is requesting refill for medication Dupixent. Cb# [phone] * Telephone Encounter - Gilda Arellano - 01/02/2024 2:32 PM CDT Routed message to Dr. Savage to send refills for Dupixent to [facility] pharmacy. [facility] - [address] [place] [address] Gilda Arellano * Telephone Encounter - Gilda Arellano - 12/31/2023 7:35 AM CDT Routed message for Dr. Savage to send refills for Dupixent 300mg/2ml syringe to the following pharmacy. [facility] - [address] [place] [address] Gilda Arellano * Telephone Encounter - Kj Segovia - 09/26/2023 11:03 AM CST pt needs to get his medication that was prescribed by Dr. Savage to be sent over to a new location. Pt's pharmacy does not have the specific brand for pt's allergy. Triamcinolone(1%) perrigo brand 3 refills was the order..[address] [place] [phone] [facility] pharmacy is the new address forthe medication ALS ANALYST documented in this encounter Plan of Treatment Upcoming Encounters Date Type Department Care Team (Late st Contact Info) Description 10/04/2025 8:40 AM APPEALS ANALYST Office Visit [facility] - D[facility] [facility] [place] [address] Rusty Savage MD [address] [facility] [address] [place] [address] documented as of this encounter Visit Diagnoses Not on filedocumented in this encounter Care Teams Architectural Wood Model Maker Relationship Specialty Start Date End Date Mike Norwood DO PCP - General 12/08/10 09/28/24 Anjelica Hughes DO [address] [facility] [address] [place] [address] PCP - General Family Medicine 09/29/24 documented as of this encounter
--- OUTSIDE RECORDS SUMMARY | 2025-05-06 10:18 | XMS_ITS | Clinical Summary ---
Author Organization [facility] [address] Address [address] [place] [address] Care Team Providers Care Teacher Education Instructor Name Role Phone Mike Norwood DO Primary Care Provider [phone] Allergies Active Allergy Reactions Criticality Noted Date Comments Carbamazepine Rash Medium 09/28/2019 Chromic Acid Rash Medium 09/28/2019 Iodopropynyl Butylcarbamate Rash Medium 09/28/20 19 Lidocaine Rash Medium 09/28/2019 Mercaptobenzothiazole Rash Medium 09/28/2019 Ufmyhpzy-Gnwwpjxfee-Ltslzaqbb Other (See comments) Low 05/26/2012 Skin reaction Potassium Bichromate Rash Medium 09/28/2019 Stannous Chloride Rash Medium 09/28/2019 Zinc Rash Medium 09/28/2019 Medications dupilumab 300 mg/2 mL syringeIndications: eczema Inject 600 mg under the skin every 14 (fourteen) days Last dose 04/20/21 Active desoximetasone (TOPICORT) 0.25 % cream Apply 1 application topically as needed for irritation Active metroNIDAZOLE (METROCREAM) 0.75 % creamIndications:Ac ne Rosacea Apply 1 application topically as needed Active atorvastatin (LIPITOR) 20 mg tablet Take 20 mg by mouth nightly Active levothyroxine (SYNTHROID) 125 mcg tabletIndications:h ypothyroidism Take 125 mcg by mouth pediatric nephrologist before breakfast Active aspirin 325 mg tabletIndications:C erebral Thromboembolism Prevention Take 325 mg by mouth every morning Active omeprazole (PriLOSEC) 20 mg capsule Take 1 capsule (20 mg total) by mouth daily 11/23/19 23 Active Active Problems Problem Noted Date Diagnosed Date Transient ischemic attack (TIA) 06/06/2021 Other chest pain 06/09/2018 Assessment & Plan (06/09/2018 11:21 AM CDT): Risk factors for CAD includes age, hyperlipidemia. Arrange for exercise nuclear stress test to rule out ischemia. Advised to take aspirin 81 milligram daily. If chest pain persists more than 5-10 minutes, I advised patient to call 911. Other specified hypothyroidism 06/09/2018 Assessment & Plan (06/09/2018 11:22 AM CDT): Continue levothyroxine Mixed hyperlipidemia 06/09/2018 Assessment & Plan (06/09/2018 11:28 AM CDT): Lipid panel shows LDL 95 and HDL 61. Continue Lipitor 10 milligram daily Surgical History Surgery Date Site/Laterality Comments KNEE SURGERY Right COLONOSCOPY CATARACT EXTRACTION, BILATERAL Medical History Medical History Date Comments Eczema Thyroid disease Hyperlipidemia Family History Medical History Relation Name Comments Colon cancer Brother Liver cancer Brother Diabetes Father Hyperlipidemia Father Prostate cancer Father Valvular heart disease Father Skin cancer Sister 2 Skin cancer Sister 3 Anesthesia problems Neg Hx Relation Name Status Comments Brother (Age 61) Father Alive Mother Alive Sister 1 Alive Sister 2 Alive Sister 3 Alive Sister 4 Alive Sister 5 Alive Sister 6 Alive Social History Tobacco Use Types Packs/Day Years Used Date Smoking Tobacco: Former Cigarettes 0.1 0.7 1 972 - 06/09/1972 Smokeless Tobacco: Never Alcohol Use Standard Drinks/Week Comments Yes 2 (1 standard drink = 0.6 oz pur e alcohol) AUDIT-C Answer Date Recorded Q1: How often do you have a drink containing alc ohol? 2-3 times a week 04/26/2021 Q2: How many drinks containi ng alcohol do you have on a typical day when you are drinking? 1 or 2 04/26/2021 Q3: How often do you have si x or more drinks on one occasion? Never 04/26/2021 Personal Safety Answer Date Recorded Getting School Help Needed Not on file 10/01 Sex and Gender Information Value Date Recorded Sex Assigned at Not on file Legal Sex Male 12:50 AM COLLISION ESTIMATOR Gender Identity Not on file Sexual Orientation Not on file Obstetrics History Last Filed Vital Signs Vital Sign Reading Time Taken Comments Blood Pressure 126/80 06/06/2021 11:38 AM CDT Pulse 71 06/06/2021 11:38 AM CDT Temperature 36.2 C (97.2 F) 05/09/2021 9:30 AM CDT Respiratory Rate 15 05/09/2021 10:30 AM CDT Oxygen Saturation 93% 05/09/2021 10:30 AM CDT Inhaled Oxygen Concentration - - Weight 93 kg (205 lb) 11/20/2023 9:26 AM COLLISION ESTIMATOR Height 177.8 cm (5' 10) 11/20/2023 9:26 AM COLLISION ESTIMATOR Body Mass Index 29.41 11/20/2023 9:26 AM COLLISION ESTIMATOR Plan of Treatment Health Maintenance Due Date Last Done Comments Colon Cancer Screening-Colonoscopy 1955 Depression Screening 1955 Hepatitis C Screening 1955 Prostate Cancer Screening-PSA 1953 Hepatitis B Screening 1971 Zoster Vaccine (2 of 3) 01/12/2015 11/17/2014 Abdominal Aortic Aneurysm (AAA) Screen 2018 Well Visit 65+ 2018 Pneumococcal vaccine 65+ (2 of 2 - PPSV23) 10/11/2019 10/11/2018 Fall Risk Assessment 04/26/2022 04/26/2021 Influenza Vaccine (Season Ended) 2025 08/28/20 20, 10/11/2018 DTaP/Tdap/Td Vaccine (3 - Td or Tdap) 08/10/2027, 03/07/2015 Insurance MEDICARE [facility] MEDICARE [employer] MEDICARE [facility] Care Teams Teacher Education Instructor Relationship Specialty Start Date End Date Mike Norwood DO PCP - General 11/09/13
--- OUTSIDE RECORDS SUMMARY | 2025-05-06 10:18 | XMS_ITS | Clinical Summary ---
Author Organization [facility] Address [address] [place] [phone] Care Team Providers Care Machine Bunch Maker Name Role Phone Unavailable Primary Care Provider Unavailabl e Allergies No known active allergies Medications atorvastatin (LIPITOR) 20 mg tablet 05/11/2021 Active Dupixent Syringe 300 mg/2 mL Syringe 04/27/2021 Act carolyn Synthroid 125 mcg tablet 04/18/2021 Active metroNIDAZOLE (METROCREAM) 0.75 % Cream 05/18/2021 Active desoximetasone (TOPICORT) 0.25 % Cream Apply to affected area. 05/15/2021 Active aspirin (VÍCTOR CHEWABLE) 81 mg Tablet, Chewable Take 81 mg by mouth daily. Active Active Problems No known active problems Social History Tobacco Use Types Packs/Day Years Used Date Smoking Tobacco: Never Smokeless Tobacco: Never Alcohol Use Standard Drinks/Week Comments Yes 4 (1 standard drink = 0.6 oz pur e alcohol) Sex and Gender Information Value Date Recorded Sex Assigned at Not on file Legal Sex Male 1:09 PM CDT Gender Identity Not on file Sexual Orientation Not on file Last Filed Vital Signs Vital Sign Reading Time Taken Comments Blood Pressure 143/84 06/07/2021 4:58 PM CDT Pulse 73 06/07/2021 4:58 PM CDT Temperature 36.5 C (97.7 F) 06/07/2021 4:58 PM CDT Respiratory Rate 18 06/07/2021 4:58 PM CDT Oxygen Saturation 98% 06/07/2021 4:58 PM CDT Inhaled Oxygen Concentration - - Weight - - Height - - Body Mass Index - - Plan of Treatment Health Maintenance Due Date Last Done Comments DTAP/TDAP/TD VACCINES (1 - Tdap) 1972 COLORECTAL SCREENING 1998 Colorectal Cancer Screening 1998 FIT-DNA Q 3 years 1998 FIT/FOBT Q 1 year 1998 Flex Sig/CT Colonography Q 5 years 1998 PNEUMOCOCCAL VACCINE 50+ YEARS (1 of 1 - PCV) 08/13/20 03 ZOSTER VACCINE (1 of 2) 2003 INFLUENZA VACCINE (#1) 2025 RSV VACCINE (60+ or ) (1 - 1-dose 75+ series) 2028 Insurance MEDICARE
--- OUTSIDE RECORDS SUMMARY | 2025-05-06 10:18 | XMS_ITS | Encounter Summary ---
Author Organization [facility] Address [address] [place] [address] Care Team Providers Care Oracle Identity Management Consultant Name Role Phone Saul Anjelica Pedro Primary Care Provider +1- [phone] Reason for Visit * Reason Onset Date Comments Nurse Only 02/22/2025 Encounter Details Date Type Department Care Team (Late st Contact Info) Description 02/22/2025 Telephone [facility] - Dermatology [address] [place] [address], [place] [phone] Rusty Savage MD [address] [place] [address] [address] DEPT [place] DERMATOLOGY [place], [place] [id number] Nurse Only Social History Tobacco Use Types Packs/Day Years Used Date Smoking Tobacco: Former Cigarettes Q uit: 10/14/1972 Smokeless Tobacco: Never Alcohol Use Standard Drinks/Week Comments Yes 5.8 (1 standard drink = 0.6 oz p ure alcohol) Sex and Gender Information Value Date Recorded Sex Assigned at Not on file 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 Is wanting to make an apt for Hussein or francisco meyer next week when he arrives from out of town. Please call and advise. Cbn is [phone] documented in this encounter Plan of Treatment Upcoming Encounters Date Type Department Care Team (Late st Contact Info) Description 10/04/2025 8:40 AM DIVISION ORDER ANALYST Office Visit [facility] - Dermatology [address] [place] [address], [place] [address] Rusty Savage MD [address] [place] [address] 3 [place] [address] documented as of this encounter Visit Diagnoses Not on filedocumented in this encounter Care Teams Oracle Identity Management Consultant Relationship Specialty Start Date End Date Anjelica Hughes DO [address] [facility] [address] [place] [phone] PCP - General Family Medicine 09/29/24 documented as of this encounter
--- OUTSIDE RECORDS SUMMARY | 2025-05-06 10:18 | XMS_ITS | Encounter Summary ---
Author Organization [facility] Address [address] [facility] [place] [address] Care Team Providers Care Cuff Matcher Name Role Phone Anjelica Hughes Primary Care Provider +1- [phone] Encounter Details Date Type Department Care Team (Late st Contact Info) Description 02/09/2025 Telephone [facility] - Centralized Scheduling [address] [place] [phone] Rusty Savage MD [address] [facility] 3 DEPT OF DERMATOLOGY [place], [place] [id number] Social History Tobacco Use Types Packs/Day Years Used Date Smoking Tobacco: Former Cigarettes Q uit: 10/14/1972 Smokeless Tobacco: Never Alcohol Use Standard Drinks/Week Comments Yes 5.8 (1 standard drink = 0.6 oz p ure alcohol) Sex and Gender Information Value Date Recorded Sex Assigned at Not on file 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 Hurts. Not itching. 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 I sent in keflex 500 mg tid for 7 days. Patient to follow up with me or PCP if condition does not improve. Rusty Savage MD * Telephone Encounter - Stephany Wu - 02/09/2025 8:37 AM CDT Pt calling to speak with Dr Savage or nurse. Sttd he is having a current breakout and his topical ointment is not helping or providing any relief documented in this encounter Plan of Treatment Upcoming Encounters Date Type Department Care Team (Late st Contact Info) Description 10/04/2025 8:40 AM INDUSTRIAL TRUCK OPERATOR Office Visit [facility] - Dermatology [address] [place] [address], [place] [address] Rusty Savage MD [address] [place] [address] 3 [place] [address] documented as of this encounter Visit Diagnoses Not on filedocumented in this encounter Care Teams Cuff Matcher Relationship Specialty Start Date End Date Anjelica Hughes DO [address] [facility] [address] [place] [address] PCP - General Family Medicine 09/29/24 documented as of this encounter
--- OUTSIDE RECORDS SUMMARY | 2025-05-06 10:18 | XMS_ITS | Encounter Summary ---
Author Organization [facility] Address [address] [facility] [place] [address] Care Team Providers Care Lab Assistant Name Role Phone Mike Norwood DO Primary Care Provider +1 [phone] Anjelica Hughes DO Primary Care Provider +1- [phone] Reason for Visit * Reason Onset Date Comments Medication Issue 11/03/2021 Encounter Details Date Type Department Care Team (Late st Contact Info) Description 11/03/2021 Telephone [facility] [address] [facility], [facility] [place] [place] [phone] Rusty Savage MD [facility] [place] [address] Medication Issue Social History Tobacco Use Types Packs/Day Years Used Date Smoking Tobacco: Former Cigarettes Q uit: 10/14/1972 Smokeless Tobacco: Never Alcohol Use Standard Drinks/Week Comments Yes 5.8 (1 standard drink = 0.6 oz p ure alcohol) Sex and Gender Information Value Date Recorded Sex Assigned at Not on file 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 Would like a call with Dr Savage, Please advise. D ACCOUNT MANAGER * Telephone Encounter - Zain De Los Santos - 11/03/2021 9:21 AM CST Pt called concerning medication DUPIXENT 300 MG/2ML prefilled syringe, says that Dupixent is telling them we need to send out a card to Pt to help with Co-Pay. Please advise D ACCOUNT MANAGER documented in this encounter Plan of Treatment Upcoming Encounters Date Type Department Care Team (Late st Contact Info) Description 10/04/2025 8:40 AM FIELD ACCOUNT MANAGER Office Visit [facility] - Dermatology [address] [place] [address], [place] [address] Rusty Savage MD [address] [place] [address] [address] [place] [address] documented as of this encounter Visit Diagnoses Not on filedocumented in this encounter Care Teams Lab Assistant Relationship Specialty Start Date End Date Mike Norwood DO PCP - General 12/08/10 09/28/24 Anjelica Hughes DO [address] [place] [phone] PCP - General Family Medicine 09/29/24 documented as of this encounter
--- OUTSIDE RECORDS SUMMARY | 2025-05-06 10:18 | XMS_ITS | Referral Summary ---
Author Organization [facility] [address] Address [address] [place] [address] Care Team Providers Care Pasta Press Operator Name Role Phone Mike Norwood DO Primary Care Provider +1- [phone] Allergies Active Allergy Reactions Criticality Noted Date Comments Carbamazepine Rash Medium 09/28/2019 Chromic Acid Rash Medium 09/28/2019 Iodopropynyl Butylcarbamate Rash Medium 09/28/20 19 Lidocaine Rash Medium 09/28/2019 Mercaptobenzothiazole Rash Medium 09/28/2019 Tydzmxwf-Lrmhmktdwm-Xoajtcylv Other (See comments) Low 05/26/2012 Skin reaction [...] tabletIndications:h ypothyroidism Take 125 mcg by mouth qa analyst before breakfast Active aspirin 325 mg tabletIndications:C [...] HDL 61. 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
--- OUTSIDE RECORDS SUMMARY | 2025-05-06 10:18 | XMS_ITS | Clinical Summary ---
Author Organization [facility] [employer] Address [address] [facility] [place] [address] Care Team Providers Care Web Applications Programmer Name Role Phone Saul Anjelica Pedro Primary Care Provider +1- [phone] Source Comments [facility],non-owned Affiliates and Associated Physician Practices is amultiple site organization consisting of ambulatory clinics and hospital sitesin [place], [place], [place] and [place]. This disclosure is being madepursuant to the Care Everywhere program and may not contain all information available regarding this patient. Last updated 18.[facility] [employer] Allergies Active Allergy Reactions Criticality Noted Date Comments Carbamazepine Rash Medium 09/28/2019 Chromic Acid Rash Medium 09/28/2019 Montes Mystique Body Rash Medium 09/28/2019 Lidocaine Rash Medium 09/28/2019 Iodopropynyl Rash Medium 09/28/2019 Mercaptobenzothiazole Rash Medium 09/28/2019 Bagxiyvb-Tnkiovhvik-Uwfanxnbk Rash Medium 2011 Sdhfzlpz-Lgyiuytnei-Cwjyegxov Skin Reactions Low Potassium Dichromate Rash Medium 09/28/2019 Stannous Chloride Rash Medium 09/28/2019 Zinc Iodide Rash Medium 09/28/2019 Medications * Be aware that medications may not be up to date on this document. Alwaysverify current medications with the patient. atorvastatin (LIPITOR) 10 MG tablet Take 1 (one) tablet by mouth once daily Active levothyroxine (Synthroid) 125 MCG tablet Take 1 (one) tablet by mouth once daily 8 Active Multiple Vitamin (MULTI VITAMIN DAILY PO) Take 2 tablets by mouth once daily Active aspirin (ASPIRIN) 81 MG tablet Take 365 mg by mouth once daily Active atorvastatin (LIPITOR) 20 MG tablet Take 1 (one) tablet by mouth at bedtime Active SYNTHROID 125 MCG tablet 2 Active omeprazole (PriLOSEC) 20 MG capsule Take 1 (one) capsule by mouth once daily 3 Active tacrolimus (Protopic) 0.1 % ointment Apply to pink and itchy areas up to two times daily as needed. 30 days supply. 100 g 11 3 Active Additional Information Patient not taking.Reported on 09/23/2023 mupirocin (Bactroban) 2 % ointment Apply to affected areas twice daily 30 g 4 3 Active Additional Information Patient not taking.Reported on 09/29/2024 triamcinolone acetonide (Kenalog) 0.1 % ointmentIndicat ions:Allergic contact dermatitis due to other agents,Other atopic dermatitis Apply to affected areas twice daily as needed for itch or rash. 30 day supply 80 g 3 Active Additional Information Patient not taking.Reported on 09/29/2024 desoximetasone (Topicort) 0.25 % creamIndication s:Other atopic dermatitis,Ta rgic contact dermatitis due to other agents Apply to affected area body twice daily (do not use on face or skin folds). 30 DS. 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 Multiple benign melanocytic nevi of upper extremity, lower extremity, and trunk 07/03/2021 Other atopic dermatitis 11/14/2020 Assessment & Plan (05/15/2021 9:24 AM CDT): 05/15/21 ACD + AD, well controlled, cont dupixent 300mg q14d, Assessment & Plan (11/14/2020 9:34 AM STENCIL PRINTER): 11/14/20 ACD + AD, well controlled, cont dupixent 300mg q14d, paying out of pocket $5k/yr to dupixent Other rosacea 11/14/2020 Assessment & Plan (05/15/2021 9:25 AM CDT): 05/15/21 well controlled, maximize previous recs, metro cr daily to bid Assessment & Plan (11/14/2020 9:35 AM STENCIL PRINTER): 11/14/20 well controlled, maximize previous recs, metro cr qd as ppx Allergic contact dermatitis due to other agents 07/22/2017 Overview (11/14/2020): Patch Testing Results as of July 2012: 2-mercaptobenzothiazole Amidoamine Bacitracin Carba Mix Cocamidopropyl Betaine Gold Iodopropynyl Butylcarbamate iron chloride Potassium Dichromate potassium dicyanoaurate Stannous Chloride Assessment & Plan (05/15/2021 9:24 AM CDT): Avoidance Follow CAMP list. Continue desoximetasone cream bid prn Assessment & Plan (11/14/2020 9:54 AM STENCIL PRINTER): Avoidance Follow CAMP list. 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 7 Unspecified contact dermatitis due to other agen ts 07/21/2012 Overview (01/13/2018): 2-Mercaptobenzothiazole Carba Mix Potassium Dichromate Bacitracin Iodopropynyl Butylcarbamate Cocamidopropyl Betaine Amidoamine Goldsodiumthiosulfate Zinc Chloride Titanium Oxalate Vanadium (III) Chloride Iron (III) Chloride Potassium dicyanoaurate Stannous Chloride Ammonium Hexachloroplatinate Encounters Date Type Department Care Team Description 03/04/2025 Telephone [facility] - Dermatology [address] [place] [address] Rusty Savage MD Appointment (called patient following up on patient call to get appointment scheduled. left voicemail for patient to call office.) 02/22/2025 Telephone [facility] - Dermatology [address] [place] [address] Rusty Savage MD Nurse Only 02/09/2025 Orders Only [facility] - General Dermatology [address], [facility] [address] [place] [address] Rusty Savage MD 02/09/2025 Telephone [facility] - Centralized Scheduling [address] [place] [phone] Rusty Savage MD from Last 3 Months Immunizations Immunization Administration Dates Next Due INFLUENZA VACCINE 08/28/2020 Family History Medical History Relation Name Comments Cancer Brother liver and colon cancer; Status: Cancer Father prostate; Statu s: Alive Heart Disease Father None Known Maternal Aunt None Known Maternal Grandfather None Known Maternal Grandmother None Known Maternal Uncle None Known Mother None Known Other None Known Paternal Aunt None Known Paternal Grandfather None Known Paternal Grandmother None Known Paternal Uncle Cancer - Skin, Melanoma Sister Stat us: Alive Allergy (Severe) Neg Hx Asthma Neg Hx CVA Neg Hx Cancer - Breast Neg Hx Cancer - Other Neg Hx Cancer - Skin, Non Melanoma Neg Hx Eczema Neg Hx Hemophilia Neg Hx Psoriasis Neg Hx Rashes/Skin Problems Neg Hx Relation Name Status Comments Brother Father Maternal Aunt Maternal Grandfather Maternal Grandmother Maternal Uncle Mother Other Paternal Aunt Paternal Grandfather Paternal Grandmother Paternal Uncle Sister Social History Tobacco Use Types Packs/Day Years Used Date Smoking Tobacco: Former Cigarettes Q uit: 10/14/1972 Smokeless Tobacco: Never Tobacco Cessation:Counseling Given: Not Answered Alcohol Use Standard Drinks/Week Comments Yes 5.8 (1 standard drink = 0.6 oz p ure alcohol) Sex and Gender Information Value Date Recorded Sex Assigned at Not on file 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 Gender Identity Not on file Sexual Orientation Not on file Last Filed Vital Signs Vital Sign Reading Time Taken Comments Blood Pressure 153/100 02/08/2017 9:04 AM CDT Pulse 96 02/08/2017 9:04 AM CDT Temperature 36.7 C (98 F) 02/08/2017 9:04 AM CDT Respiratory Rate 18 02/08/2017 9:04 AM CDT Oxygen Saturation 100% 02/08/2017 9:04 AM CDT Inhaled Oxygen Concentration - - Weight 93.6 kg (206 lb 4.8 oz) 02/08/2017 9:04 A M CDT Height 180.3 cm (5' 11) 02/08/2017 9:04 AM CDT Body Mass Index 28.77 02/08/2017 9:04 AM CDT Plan of Treatment Upcoming Encounters Date Type Department Care Team (Late st Contact Info) Description 10/04/2025 8:40 AM STENCIL PRINTER Office Visit [facility] - Dermatology [address] [place] [address], [place] [address] Rusty Savage MD [address] [place] [address] [address] [place] [address] Health Maintenance Due Date Last Done Comments COLOGUARD (AGES 45-75) - COL ON CA SCREENING 1953 COLON MONITORING 1953 COLONOSCOPY - COLON CA SCREENING 1953 CT COLONOGRAPHY - COLON CA SCREENING 1953 Colorectal Cancer Screening 1953 FIT - COLON CA SCREENING 1953 FLEX SIG - COLON CA SCREENING 1953 MEDICARE AWV 12 MONTHS 1953 DTAP/TDAP/TD VACCINES (1 - Tdap) 1972 PNEUMOCOCCAL VACCINE 50+ (1 of 1 - PCV) 2003 ZOSTER VACCINE (1 of 2) 2003 AAA SCREENING 2018 COVID-19 VACCINE (1 - 2023-2 5 season) 2024 DEPRESSION SCREENING 10/14/2024 INFLUENZA VACCINE (#1) 2025 08/28/2020 Respiratory Syncytial Virus (RSV) Vaccine Pt: or over 60 yrs (1 - 1-dose 75+ series) 2028 HEPATITIS C SCREENING Completed 01/06/2013 HEPATITIS B VACCINE Aged Out No longe r eligible based on patient's age to complete this topic HIB VACCINE Aged Out No longer eligi ble based on patient's age to complete this topic HPV VACCINE Aged Out No longer eligi ble based on patient's age to complete this topic MENINGOCOCCAL (Group B) VACC INE SHARED DECISION-MAKING Aged Out No longer eligibl e based on patient's age to complete this topic MENINGOCOCCAL GROUPS A/C/Y/W VACCINE Aged Out No longer eligible b ased on patient's age to complete this topic Procedures Procedure Name Priority Date/Time Associated Diagnosis Comments HEPATITIS SCREEN ACUTE Routine 01/06/2013 8:04 AM CDT from Last 3 Months or Most Recently Relevant to Health Maintenance Results * HEPATITIS SCREEN ACUTE (01/06/2013 8:04 AM CDT) Hepatitis A Virus Antibody IgM NON-REACTI VE NON-REACT [facility]) Comment: Test Performed at: [facility] [address] [place] [address] ALFONSO CHARLES DO,MPH Hepatitis B Virus Surface Antigen NON-REACTI VE NON-REACT [facility]) Hepatitis B Core Virus Antibody IgM NON-REACTI VE NON-REACT [facility]) Hepatitis C Antibody NON-REACTI VE NON-REACT [facility]) Signal/Cutoff 0.07 <1.00 [facility]) 01/06/2013 8:04 AM CDT 01/06/2013 8:08 AM CDT [facility] Leti Savage MD LAB - CHEMISTRY ORDERABLES Fi nal Result [facility]) [id number] from Last 3 Months or Most Recently Relevant to Health Maintenance Insurance MEDICARE [facility] [place] [address] MEDICARE Care Teams Web Applications Programmer Relationship Specialty Start Date End Date Anjelica Hughes DO [address] [facility] [address] [place] [address] PCP - General Family Medicine 09/29/24
[2025-05-06 13:37] LABS: Prostate Specific Antigen 4.7 ng/mL (< OR = 4.0)
== END 2025-05-06 10:12 | disposition home or self-care (01) ==
LOC: ANHGOSHLAB 10:13
PROVIDERS: PCP Internal Medicine; Visit Provider Urology
DX: R97.20 Elevated prostate specific antigen [PSA] (principal)
CPT/HCPCS: 36415; 84153

== ENCOUNTER 2025-06-16 14:13 | Outpatient (CLI) | payer MEDICARE, SELFPAY ==
--- NOTE | ~2025-06-16 | XR_ITS ---
EXAM/ PROCEDURE: XR shoulder LT min 2V - 06/16/2025 14:21 CDT HISTORY: 69 years old Male with Pain in left shoulder x 2 months COMPARISON: None available TECHNIQUE: Four view(s) FINDINGS/ IMPRESSION: There are no fractures or dislocations.Joint space narrowing, subchondral sclerosis, subchondral cyst formation and osteophyte formation, compatible with mild osteoarthritis. Reviewed, dictated and finalized at location N.
== END 2025-06-16 14:14 | disposition home or self-care (01) ==
LOC: GOSHIMG 14:14
PROVIDERS: PCP Family Medicine; Visit Provider Clinical Nurse Specialist
DX: M25.512 Pain in left shoulder (principal); G89.29 Other chronic pain
CPT/HCPCS: 73030